=== PATIENT | female | born 1990 | race Caucasian/White ===

== ENCOUNTER 2019-08-03 21:59 | Emergency (ER) | payer SELFPAY ==
[~2019-08-03] VITALS: Ht 172.7 cm; Wt 87.6 kg
[2019-08-03 22:08] VITALS: BP 140/84
--- NOTE | 2019-08-03 22:18 | PHYS DOC ---
Past History Past Medical History: UTI Past Medical History G3, T3 Past Surgical History: Tubal ligation General Adult EDM: Chief Complaint: NAUSEA/VOMITING/DIARRHEA HPI: HPI: ".. Work made me come in to get checked... nauseated... I vomited 4 x .. no diarrhea yet.. but feels.. like I might... generalized abd. cramps. 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 and but no diarrhea as yet. . Reported recently tested for Covid-19, that was negative. Patient denies any trauma. Patient denies any intake of bad food. Has been around [facility] prisoners that are sick. 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 No recent travel outside [facility]. Patient has had previous pregnancies without problem patient has had a tubal ligation. G3/ T3. No vaginal discharge or dysuria. On city water. Not around ill pets or animals. Review of Systems: Review of Systems: Constitutional: Denies fever or chills Eyes: Denies change in visual acuity HENT: Denies nasal congestion or sore throat Respiratory: Denies cough or shortness of breath Cardiovascular: Denies chest pain or edema GI: Complaints of abdominal pain, nausea, vomiting. Denies, bloody stools or diarrhea : Denies dysuria Musculoskeletal: Denies back pain or joint pain Integument: Denies rash Neurologic: Denies headache, focal weakness or sensory changes Endocrine: Denies polyuria or polydipsia Lymphatic: Denies swollen glands Psychiatric: Denies depression or anxiety Heart Score: Risk Factors: Risk Factors: DM, Current or recent (<one month) smoker, HTN, HLP, family hi story of CAD, obesity. Risk Scores: Score 0 - 3: 2.5% MACE over next 6 weeks - Discharge Home Score 4 - 6: 20.3% MACE over next 6 weeks - Admit for Clinical Observation Score 7 - 10: 72.7% MACE over next 6 weeks - Early Invasive Strategies Family History: Family History: Noncontributory to presentation Current Medications: Current Meds: See nursing for home meds Allergies: Allergies: Allergic to sulfa, ibuprofen latex and Reglan Physical Exam: PE: Constitutional: Well developed, well nourished, moderate acute distress, non- toxic appearance. [] HENT: Normocephalic, atraumatic, bilateral external ears normal, oropharynx moist, no oral exudates, nose normal. [] Eyes: PERRLA, EOMI, conjunctiva normal, no discharge. [] Neck: Normal range of motion, no tenderness, supple, no stridor. [] Cardiovascular:Heart rate regular rhythm, no murmur [] Lungs & Thorax: Bilateral breath sounds equal at apex auscultation [] Abdomen: Bowel sounds hyperactive, soft, some generalized abdomen tenderness, no masses, no pulsatile masses. [] No focal areas on rebound. Declines rectal exam at this time. No history of dark or tarry stools or change in character of stool. Skin: Warm, dry, no erythema, no rash. [] Multiple contusions in different stages of healing on legs- Anterior. Back: No tenderness, no CVA tenderness. [] Extremities: No tenderness, no cyanosis, no clubbing, ROM intact, no edema. No psoas sign. Neurologic: Alert and oriented X 3, normal motor function, normal sensory function, no focal deficits noted. [] Psychologic: Affect anxious , judgement normal, mood normal. [] EKG: EKG: [] Radiology/Procedures: Radiology/Procedures: [][address] [address] IMAGING REPORT Signed PATIENT: ERICKA LEYVA ACCOUNT: [id number] : 1990 LOCATION: ER AGE: 29 SEX: F EXAM STATUS: REG ER ORD. PHYSICIAN: JODY KITCHEN MD REASON: Nausea, vomiting, abdomen pain PROCEDURE: ACUTE ABDOMEN SERIES ACUTE ABDOMEN SERIES History: Nausea, vomiting, abdominal pain Comparison: None. Findings: Frontal chest and supine and upright views of the abdomen. Cardiomediastinal silhouette is normal. There is no pleural effusion or pneumothorax. The lungs are clear. No pneumoperitoneum is identified. No dilated air-filled loops of bowel are seen. There is scattered air and stool in the colon. Bowel gas pattern is nonobstructive. No obvious organomegaly. Bones unremarkable. IMPRESSION: 1. No acute cardiopulmonary process. 2. Nonobstructive bowel gas pattern. Electronically signed by: Michael Lugo MD (08/03/2019 11:29 PM) [id number] DICTATED AND SIGNED BY: MICHAEL LUGO MD DATE: 08/03/192328 CC: JODY KITCHEN MD; PCP,NO ~ Course & Med Decision Making: Course & Med Decision Making Pertinent Labs and Imaging studies reviewed. (See chart for details) Stay on clear fluid diet only x 48 hrs. No solids or milk products. Clear fluids only. Push Vit. C drinks.. Take Zofran for active vomiting. Tylenol for pain. Follow up urine cultures. Return if any concerns. If no improvement in next 24 hrs. will need a re-exam. Impression: 1. Abdomen Pain 2. Acute Gastroenteritis 3. UTI [] Dragon Disclaimer: Dragon Disclaimer: This electronic medical record was generated, in whole or in part, using a voice recognition dictation system. Departure Departure: Disposition: 01 HOME/RESIDENCE PRIOR TO ADM Condition: STABLE Referrals: PCP,NO (PCP) Scripts Ondansetron Hcl (ZOFRAN) 8 Mg Tablet 8 MG PO QIDPRN PRN for active vomiting, #30 BOTTLE Prov: JODY KITCHEN MD 08/03/19 Cephalexin (KEFLEX) 500 Mg Capsule 500 MG PO TID for UTI for 7 Days, BOTTLE Prov: JODY KITCHEN MD 08/03/19 [place] Disclaimer This chart was dictated in whole or in part using Voice Recognition software in a busy, high-work load, and often noisy Emergency Department environment. It may contain unintended and wholly unrecognized errors or omissions. JODY KITCHEN MD August 03, 2019 22:18
[2019-08-03] MEDS: ONDANSETRON PF 4 MG/2 ML VIAL. IVP ONE (22:39)
[2019-08-03] MEDS: FAMOTIDINE 20 MG/2 ML VIAL IVP ONE (22:40)
[2019-08-03] MEDS: IV RINGERS SOLUTION,LACTATED 1,000 ML IV SCH (22:40)
[2019-08-03 22:58] LABS: BASO % 1 % (0-3); EOS # 0.1 x10^3/uL (0.0-0.7); EOS % 3 % (0-3); HEMATOCRIT 38.7 % (36.0-47.0); HEMOGLOBIN 13.3 g/dL (12.0-15.5); LYMPH # 1.6 x10^3/uL (1.0-4.8); LYMPH % 34 % (24-48); MEAN CORPUSCULAR HEMOGLOBIN 31 pg (25-35); MEAN CORPUSCULAR HGB CONC 34 g/dL (31-37); MEAN CORPUSCULAR VOLUME 90 fL (79-100); MONO # 0.4 x10^3/uL (0.0-1.1); MONO % 9 % (0-9); NEUT # 2.4 x10^3uL (1.8-7.7); NEUT % 53 % (31-73); PLATELET COUNT 180 x10^3/uL (140-400); RED BLOOD COUNT 4.31 x10^6/uL (3.50-5.40); RED CELL DISTRIBUTION WIDTH 13.1 % (11.5-14.5); WHITE BLOOD COUNT 4.5 x10^3/uL (4.0-11.0)
[2019-08-03 23:07] LABS: CALCIUM 8.6 mg/dL (8.5-10.1); CREATININE 0.8 mg/dL (0.6-1.0); GFR 84.8; POTASSIUM 3.9 mmol/L (3.5-5.1)
[2019-08-03 23:11] LABS: COLOR,URINE YELLOW
[2019-08-03 23:12] LABS: AMORPHOUS SEDIMENT,UR PRESENT /HPF; BACTERIA,URINE FEW /HPF (0-FEW); BILIRUBIN,URINE NEG (NEG); CLARITY,URINE CLOUDY; GLUCOSE,URINE NEG (NEG); NITRITE,URINE NEG (NEG); RBC,URINE 0 /HPF (0-2); SQUAMOUS EPITHELIAL CELL,UR MANY /LPF
[2019-08-03 23:13] LABS: ALBUMIN 3.5 g/dL (3.4-5.0); DIRECT BILIRUBIN 0.1 mg/dL (0.0-0.2); TOTAL BILIRUBIN 0.2 mg/dL (0.2-1.0); TOTAL PROTEIN 6.6 g/dL (6.4-8.2)
--- NOTE | 2019-08-03 23:31 | RAD ---
ACUTE ABDOMEN SERIES History: Nausea, vomiting, abdominal pain Comparison: None. Findings: Frontal chest and supine and upright views of the abdomen. Cardiomediastinal silhouette is normal. There is no pleural effusion or pneumothorax. The lungs are clear. No pneumoperitoneum is identified. No dilated air-filled loops of bowel are seen. There is scattered air and stool in the colon. Bowel gas pattern is nonobstructive. No obvious organomegaly. Bones unremarkable. IMPRESSION: 1. No acute cardiopulmonary process. 2. Nonobstructive bowel gas pattern. Electronically signed by: Michael Hidalgo MD (08/03/2019 11:29 PM) [id number]
[2019-08-03] MEDS ORDERED: CEPH-264 PO (23:41)
[2019-08-03] MEDS ORDERED: ONDA8TAB9 PO (23:41)
[2019-08-03] MEDS ORDERED: CEPHALEXIN 250 MG CAPSULE ONE (23:55)
[2019-08-03] MEDS: CEPHALEXIN 250 MG CAPSULE PO ONE (23:59)
[2019-08-05] MEDS ORDERED: LEVO500T59 PO (22:58)
== END 2019-08-04 | disposition home or self-care (01) ==
LOC: ER 21:59
DX: K52.9 Noninfective gastroenteritis and colitis, unspecified (principal); N39.0 Urinary tract infection, site not specified; R10.84 Generalized abdominal pain; R11.2 Nausea with vomiting, unspecified; Z98.51 Tubal ligation status; Z88.2 Allergy status to sulfonamides
CPT/HCPCS: 36415; 74022; 80048; 80076; 81001; 81025; 82150; 82550; 83690; 84484; 85025; 87086; 96361; 96374; 96375; 99284; J2405; J3490; J7120

== ENCOUNTER 2019-08-05 18:14 | Emergency (ER) | payer SELFPAY ==
[~2019-08-05] VITALS: Ht 172.7 cm; Wt 87.6 kg
[~2019-08-05 18:14] MED LIST: CEPH-264 PO; ONDA8TAB9 PO
--- NOTE | 2019-08-05 18:20 | PHYS DOC ---
Past History Past Medical History: Constipation, Fibromyalgia, Ovarian Cyst, UTI Additional Past Medical Histor: PCOS, umbilical hernia, PTSD Past Surgical History: Tubal ligation Alcohol Use: Occasionally General Adult EDM: Chief Complaint: ABDOMINAL PAIN HPI: HPI: " I am still having some abdomen pain...and nausea..".. " I was here the other day...".. " They said I had some gastroenteritis... That was probably viral... and a UTI.. said I had some constipation.. but I am still have the abdomen discomfort.. it seem s worse on the right today..they said come back if I was not better...".." Maybe I got appendicitis or something.. 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 pain. Patient denies any intake of bad food. Patient denies any trauma. Patient denies any recent travel outside the [facility] area. 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 Patient seen on 08/02/2020 with similar abdomen complaints. Patient has had a tubal ligation. Hx. 3,T 3. Patient denies any vaginal discharge or dysuria. Is on city water. Has not been around any ill pets or animals. Patient says pain is still somewhat generalized. Some localization to mid and right today. Patient on 08/03 2019 did have episodes of vomiting. Pt. at that visit was discharged on Keflex 500 tid and Zofran 8 prn qid for active vomiting only. Pt advised to remain on a clear fluid diet and push fluids. Pt. states she had a normal stool today. Pt denies any vaginal discharge. Pt. concerned she has appendicitis. Review of Systems: Review of Systems: Constitutional: Denies fever or chills Eyes: Denies change in visual acuity HENT: Denies nasal congestion or sore throat Respiratory: Denies cough or shortness of breath Cardiovascular: Denies chest pain or edema GI: Complaints of generalized abdominal pain, nausea. No vomiting, bloody stools or diarrhea with this visit. : Denies dysuria Musculoskeletal: Denies back pain or joint pain Integument: Denies rash Neurologic: Denies headache, focal weakness or sensory changes Endocrine: Denies polyuria or polydipsia Lymphatic: Denies swollen glands Psychiatric: Denies depression or anxiety Heart Score: Risk Factors: Risk Factors: DM, Current or recent (<one month) smoker, HTN, HLP, family history of CAD, obesity. Risk Scores: Score 0 - 3: 2.5% MACE over next 6 weeks - Discharge Home Score 4 - 6: 20.3% MACE over next 6 weeks - Admit for Clinical Observation Score 7 - 10: 72.7% MACE over next 6 weeks - Early Invasive Strategies Family History: Family History: Noncontributory to presentation Current Medications: Current Meds: See nursing for home meds Allergies: Allergies: Allergies Coded Allergies Type Severity Reaction Last Updated Verified Sulfa (Sulfonamide Antibiotics) Allergy Unknown Anaphylaxis 08/03/19 Yes ibuprofen Allergy Unknown Hives 08/03/19 Yes latex Allergy Unknown Anaphylaxis 08/03/19 Yes metoclopramide Allergy Unknown hives 08/03/19 Yes Physical Exam: PE: Constitutional: Moderate acute distress, non-toxic appearance. [] HENT: Normocephalic, atraumatic, bilateral external ears normal, oropharynx moist, no oral exudates, nose slightly swollen turbinates with clear rhinorrhea Eyes: PERRLA, EOMI, conjunctiva normal, no discharge. [] Neck: Normal range of motion, no tenderness, supple, no stridor. [] Cardiovascular:Heart rate regular rhythm, no murmur [] Lungs & Thorax: Bilateral breath sounds equal apex with few scattered wheezes on auscultation [] Abdomen: Bowel sounds slightly hyperactive, soft, generalized tenderness, no masses, distended, no pulsatile masses. Old surgery scars. No focal areas of rebound, but seems to localize to mid abdomen and to the right today.. Umbilicus hernia- this area is non-tender. Pt. declines pelvic exam.. Skin: Warm, dry, no erythema, no rash. [] Back: No tenderness, no CVA tenderness. [] Extremities: No tenderness, no cyanosis, no clubbing, ROM intact, no edema. No psoas sign. Neurologic: Alert and oriented X 3, normal motor function, normal sensory function, no focal deficits noted. [] Psychologic: Affect anxious, judgement normal, mood normal. [] EKG: EKG: [] Radiology/Procedures: Radiology/Procedures: [address] [address] IMAGING REPORT Signed PATIENT: ERICKA LEYVA N ACCOUNT: [id number] : 1990 LOCATION: ER AGE: 29 SEX: F EXAM STATUS: REG ER ORD. PHYSICIAN: JODY KITCHEN MD REASON: Severe abdomen pain PROCEDURE: ACUTE ABDOMEN SERIES EXAM: Frontal view of the chest, AP views of the abdomen in upright and supine positions. CLINICAL INDICATION: severe abdominal pain COMPARISON: None. FINDINGS and IMPRESSION: The heart is not enlarged. Mediastinal and hilar contours are normal. No focal parenchymal airspace opacity. No pleural effusion or pneumothorax. No abnormal small or large bowel dilatation. Large volume colonic stool content. No abnormal soft tissue mass effect. No suspicious calcifications are seen. No free intraperitoneal gas. Electronically signed by: Tavo Ritchie MD (08/05/2019 7:08 PM) [facility] DICTATED AND SIGNED BY: TAVO RITCHIE MD DATE: 08/05/191907 CC: JODY KITCHEN MD; PCP,NO ~ [][address] [id number] IMAGING REPORT Signed PATIENT: ERICKA LEYVA N ACCOUNT: [id number] : 1990 LOCATION: ER AGE: 29 SEX: F EXAM STATUS: REG ER ORD. PHYSICIAN: JODY KITCHEN MD REASON: Right sided abdomen pain, bloating PROCEDURE: CT ABD PELV W/ORAL&IV CONTRAST EXAM: CT Abdomen and Pelvis with IV contrast CLINICAL HISTORY: Right-sided abdominal pain, bloating. COMPARISON: none TECHNIQUE: Helical CT of the abdomen and pelvis was performed following the administration of intravenous contrast. Axial, coronal and sagittal reformatted images were generated. PQRS compliance statement - One or more of the following individualized dose reduction techniques were utilized for this study: 1. Automated exposure control 2. Adjustment of the mA and/or kV according to patient size 3. Use of iterative reconstruction technique FINDINGS: Lower chest: Linear opacities right greater than left lower lobes likely scarring/atelectasis. Abdomen and Pelvis: Focal low-attenuation along the posterolateral ligament likely focal fatty infiltration. Gallbladder is contracted. No biliary ductal dilatation. Spleen is unremarkable. Adrenal glands are normal. Symmetric nephrograms. No focal renal lesion. No hydronephrosis. No hydroureter. Bladder is unremarkable. Appendix is normal. Moderate to large volume colonic stool content is seen, particularly in the right colon. There is also a large volume of stool in the rectum. Mild associated infiltration is seen which may be seen with stercoral colitis. No abnormal small bowel dilatation to suggest bowel obstruction. No abdominal or pelvic ascites. No abdominal or pelvic lymphadenopathy. Mild endometrial prominence can be correlated with phase of menstrual cycle. Small fat-containing periumbilical hernia is seen. Bones: No aggressive osseous lesion is seen. IMPRESSION: 1. Large volume colonic stool content is seen within the rectum. Mild associated infiltration may be seen with stercoral colitis. This can be correlated for possible fecal impaction. 2. No bowel obstruction. Appendix is normal. 3. Endometrial prominence can be correlated with phase of menstrual cycle. 4. Small fat-containing periumbilical hernia is seen. Electronically signed by: Tavo Ritchie MD (08/05/2019 10:26 PM) [facility] DICTATED AND SIGNED BY: TAVO RITCHIE MD DATE: 08/05/192225 Course & Med Decision Making: Course & Med Decision Making Pertinent Labs and Imaging studies reviewed. (See chart for details) Patient remain on a clear fluid diet only. No solids or milk products. Patient push fluids. Patient take Tylenol for pain. Patient take in addition to her Keflex -Levaquin 500 mg daily since she has increased white cells in urine today. Patient given mag citrate to clear the stool burden. Patient to expect some diarrhea and cramping with passage of stool burden. Patient to follow-up with primary care. Patient to follow-up cultures. Patient recommended to get colonoscopy if no improvement of her abdomen pain to evaluate for colitis. Abdullahi spect this is most likely a viral syndrome . Could be a Covid-19 presentation, but with stable vitals, adequate hydration admission at this time would not be indicated. Patient not work if she is ill. Follow-up is a must. Must self isolate. Return if dyspnea or no improvement. Impression: 1. Abdomen Pain 2. History of acute gastroenteritis 3. Constipation 4. Urinary tract infection 5. Hx of Exposure to Covid-19 individuals [] Dragon Disclaimer: Dragon Disclaimer: This electronic medical record was generated, in whole or in part, using a voice recognition dictation system. Departure Departure: Disposition: 01 HOME/RESIDENCE PRIOR TO ADM Condition: STABLE Referrals: PCP,NO (PCP) Scripts Levofloxacin (LEVAQUIN) 500 Mg Tablet 500 MG PO DAILY for UTI for 7 Days, #7 TAB Prov: JODY KITCHEN MD 08/05/19 Shelley Disclaimer This chart was dictated in whole or in part using Voice Recognition software in a busy, high-work load, and often noisy Emergency Department environment. It may contain unintended and wholly unrecognized errors or omissions. Dragon Disclaimer This chart was dictated in whole or in part using Voice Recognition software in a busy, high-work load, and often noisy Emergency Department environment. It may contain unintended and wholly unrecognized errors or omissions. JODY KITCHEN MD August 05, 2019 18:20
[2019-08-05] MEDS ORDERED: IV RINGERS SOLUTION,LACTATED 1,000 ML IV SCH (18:21)
[2019-08-05] MEDS ORDERED: ONDANSETRON PF 4 MG/2 ML VIAL. IVP ONE (18:30)
[2019-08-05] MEDS ORDERED: FAMOTIDINE 20 MG/2 ML VIAL IVP ONE (18:30)
[2019-08-05 18:47] LABS: BASO % 1 % (0-3); EOS # 0.1 x10^3/uL (0.0-0.7); EOS % 2 % (0-3); HEMATOCRIT 41.1 % (36.0-47.0); LYMPH # 1.8 x10^3/uL (1.0-4.8); LYMPH % 34 % (24-48); MEAN CORPUSCULAR HEMOGLOBIN 31 pg (25-35); MEAN CORPUSCULAR HGB CONC 34 g/dL (31-37); MEAN CORPUSCULAR VOLUME 90 fL (79-100); MONO # 0.4 x10^3/uL (0.0-1.1); MONO % 7 % (0-9); NEUT # 2.9 x10^3uL (1.8-7.7); NEUT % 56 % (31-73); PLATELET COUNT 195 x10^3/uL (140-400); RED BLOOD COUNT 4.55 x10^6/uL (3.50-5.40); RED CELL DISTRIBUTION WIDTH 13.5 % (11.5-14.5); WHITE BLOOD COUNT 5.1 x10^3/uL (4.0-11.0)
[2019-08-05 19:04] LABS: CALCIUM 8.7 mg/dL (8.5-10.1); CREATININE 0.8 mg/dL (0.6-1.0); GFR 84.8; POTASSIUM 4.1 mmol/L (3.5-5.1)
[2019-08-05 19:07] LABS: ALBUMIN 3.6 g/dL (3.4-5.0); ALBUMIN/GLOBULIN RATIO 1.1 (1.0-1.7); DIRECT BILIRUBIN 0.1 mg/dL (0.0-0.2); TOTAL BILIRUBIN 0.2 mg/dL (0.2-1.0); TOTAL PROTEIN 6.8 g/dL (6.4-8.2)
--- NOTE | 2019-08-05 19:11 | RAD ---
EXAM: Frontal view of the chest, AP views of the abdomen in upright and supine positions. CLINICAL INDICATION: severe abdominal pain COMPARISON: None. FINDINGS and IMPRESSION: The heart is not enlarged. Mediastinal and hilar contours are normal. No focal parenchymal airspace opacity. No pleural effusion or pneumothorax. No abnormal small or large bowel dilatation. Large volume colonic stool content. No abnormal soft tissue mass effect. No suspicious calcifications are seen. No free intraperitoneal gas. Electronically signed by: Tavo Bravo MD (08/05/2019 7:08 PM) QI
[2019-08-05 19:36] LABS: AMPHETAMINE/METHAMPHETAMINE NEG (NEG); BARBITURATES NEG (NEG); BENZODIAZEPINES NEG (NEG); CANNABINOIDS NEG (NEG); COCAINE NEG (NEG); METHADONE NEG (NEG); OPIATES NEG (NEG); PHENCYCLIDINE NEG (NEG)
[2019-08-05 19:41] LABS: BACTERIA,URINE MOD /HPF (0-FEW); BILIRUBIN,URINE NEG (NEG); CLARITY,URINE HAZY; COLOR,URINE YELLOW; GLUCOSE,URINE NEG (NEG); NITRITE,URINE NEG (NEG); SQUAMOUS EPITHELIAL CELL,UR MANY /LPF
[2019-08-05] MEDS ORDERED: KETOROLAC 30 MG/ML VIAL. IVP ONE (19:45)
[2019-08-05] MEDS ORDERED: IV NORMAL SALINE 50ML 50 ML ONE (20:55)
[2019-08-05] MEDS ORDERED: cefTRIAXone SODIUM 1 GM VIAL ONE (20:55)
[2019-08-05] MEDS ORDERED: CONTRAST GIVEN MC PRN (21:00)
[2019-08-05] MEDS ORDERED: IOHEXOL 240 MG/ML 50ML VIAL. PO ONE (21:30)
[2019-08-05] MEDS ORDERED: IOHEXOL 300 MG/ML 75 ML VIAL. IV ONE (21:30)
[2019-08-05 21:49] VITALS: BP 110/59
--- NOTE | 2019-08-05 22:29 | RAD ---
EXAM: CT Abdomen and Pelvis with IV contrast CLINICAL HISTORY: Right-sided abdominal pain, bloating. COMPARISON: none TECHNIQUE: Helical CT of the abdomen and pelvis was performed following the administration of intravenous contrast. Axial, coronal and sagittal reformatted images were generated. PQRS compliance statement - One or more of the following individualized dose reduction techniques were utilized for this study: 1. Automated exposure control 2. Adjustment of the mA and/or kV according to patient size 3. Use of iterative reconstruction technique FINDINGS: Lower chest: Linear opacities right greater than left lower lobes likely scarring/atelectasis. Abdomen and Pelvis: Focal low-attenuation along the posterolateral ligament likely focal fatty infiltration. Gallbladder is contracted. No biliary ductal dilatation. Spleen is unremarkable. Adrenal glands are normal. Symmetric nephrograms. No focal renal lesion. No hydronephrosis. No hydroureter. Bladder is unremarkable. Appendix is normal. Moderate to large volume colonic stool content is seen, particularly in the right colon. There is also a large volume of stool in the rectum. Mild associated infiltration is seen which may be seen with stercoral colitis. No abnormal small bowel dilatation to suggest bowel obstruction. No abdominal or pelvic ascites. No abdominal or pelvic lymphadenopathy. Mild endometrial prominence can be correlated with phase of menstrual cycle. Small fat-containing periumbilical hernia is seen. Bones: No aggressive osseous lesion is seen. IMPRESSION: 1. Large volume colonic stool content is seen within the rectum. Mild associated infiltration may be seen with stercoral colitis. This can be correlated for possible fecal impaction. 2. No bowel obstruction. Appendix is normal. 3. Endometrial prominence can be correlated with phase of menstrual cycle. 4. Small fat-containing periumbilical hernia is seen. Electronically signed by: Tavo Bravo MD (08/05/2019 10:26 PM) [facility]
[2019-08-05] MEDS ORDERED: LEVO500T59 PO (22:58)
[2019-08-05] MEDS ORDERED: MAGNESIUM CITRATE 296 ML SOLUTION. PO ONE (23:00)
[2019-08-05] MEDS ORDERED: levoFLOXacin 500 MG TABLET PO ONE (23:00)
== END 2019-08-05 23:40 | disposition home or self-care (01) ==
LOC: ER 18:14
DX: N39.0 Urinary tract infection, site not specified (principal); K59.00 Constipation, unspecified; K52.9 Noninfective gastroenteritis and colitis, unspecified; R10.84 Generalized abdominal pain; M79.7 Fibromyalgia; R11.2 Nausea with vomiting, unspecified; F43.12 Post-traumatic stress disorder, chronic; Z98.51 Tubal ligation status; Z88.2 Allergy status to sulfonamides; Z88.6 Allergy status to analgesic agent; Z91.018 Allergy to other foods; Z88.8 Allergy status to other drugs, medicaments and biological substances; Z20.828 Contact with and (suspected) exposure to other viral communicable diseases
CPT/HCPCS: 36415; 74022; 74177; 80053; 80076; 80307; 81001; 81025; 82150; 82550; 83690; 84484; 85025; 85610; 85730; 87040; 87086; 96361; 96365; 96375; 99285; J0696; J1885; J2405; J3490; J7120; Q9966; Q9967